=== PATIENT | female | born 1970 | race Caucasian/White ===

== ENCOUNTER 2021-12-26 12:09 | Observation (INO) ==
[2021-12-26] MEDS ORDERED: NovoLIN R (or HumuLIN R) SUBCUT PRN (15:37)
[2021-12-26 16:05] LABS: BASOPHILS % (AUTO) 0.5 % (0.2-1.0); EOSINOPHILS # (AUTO) 0.1 x10^3/uL (0.0-0.2); EOSINOPHILS % (AUTO) 1.8 % (0.9-2.9); HEMATOCRIT 31.6 % (36.0-47.0); LYMPHOCYTES # (AUTO) 1.8 X10^3/uL (1.3-2.9); MEAN CORPUSCULAR HEMOGLOBIN 29.9 pg (27.0-34.0); MEAN CORPUSCULAR HGB CONC 34.8 g/dL (33.0-35.0); MEAN PLATELET VOLUME 7.1 fL (7.4-11.0); MONOCYTES # (AUTO) 0.7 x10^3/uL (0.3-0.8); MONOCYTES % (AUTO) 8.6 % (0.0-13.0); NEUTROPHILS # (AUTO) 5.3 x10^3/uL (2.2-4.8); NEUTROPHILS % (AUTO) 66.1 % (42.0-75.0); RED BLOOD COUNT 3.67 X10^6/uL (3.5-5.4); RED CELL DISTRIBUTION WIDTH 14.7 % (11.6-16.5)
[2021-12-26 16:14] LABS: ALANINE AMINOTRANSFERASE 25 Units/L (12-78); ALBUMIN 3.4 g/dL (3.4-5.0); ALKALINE PHOSPHATASE 89 Units/L (46-116); AMYLASE 19 Units/L (25-115); ASPARTATE AMINO TRANSFERASE 23 Units/L (15-37); BLOOD UREA NITROGEN 12 mg/dL (7-18); CALCIUM 8.1 mg/dL (8.5-10.1); CHLORIDE 104 mmol/L (98-107); COR NA(FOR HYPERGLY) 139 mmol/L (136-145); CREATININE 0.95 mg/dL (0.55-1.02); LIPASE 69 Units/L (73-393); MAGNESIUM 1.4 mg/dL (1.7-2.9); SODIUM 137 mmol/L (136-145); TOTAL PROTEIN 6.3 g/dL (6.4-8.2); eGFR NON BLACK RACES > 60 (>60)
[2021-12-26] MEDS: D5 1/2 NS 1,000 ML 1,000 ML IV SCH (16:20)
[2021-12-26] MEDS: ZOFRAN INJ 4 MG VIAL IVP PRN ×2 (16:21→20:10)
[2021-12-26] MEDS ORDERED: POTASSIUM CHL 60 MEQ/NS 0.45% 500 ML IV PRN (16:32)
[2021-12-26] MEDS ORDERED: POTASSIUM CHLORIDE LIQ 20 MEQ UDC PO PRN (16:32)
[2021-12-26] MEDS ORDERED: KLOR-CON PO PRN (16:32)
[2021-12-26] MEDS ORDERED: K-RIDER 10 MEQ/NS 100 ML 10 MEQ/100 ML BAG IV PRN (16:32)
[2021-12-26] MEDS ORDERED: K-DUR TAB 20 MEQ PO PRN (16:32)
[2021-12-26] MEDS ORDERED: MICRO K EXTEN CAP 10 MEQ PO PRN (16:32)
[2021-12-26] MEDS ORDERED: POTASSIUM CHL 40 MEQ/NS 0.45% 500 ML IV PRN (16:32)
[2021-12-26 16:49] VITALS: BMI 36.0
[2021-12-26] MEDS: MAGNESIUM SULFATE 1 GRAM/100 mL PREMIX 1 G/100 ML BAG IV PRN ×3 (17:29→20:35)
[2021-12-26] MEDS ORDERED: TYLENOL 325 MG TAB PO PRN (19:23)
[2021-12-26] MEDS: MOBIC TAB 15 MG PO SCH (21:14)
[2021-12-26] MEDS: ZOCOR TAB 40 MG PO SCH (21:14)
[2021-12-26] MEDS: COREG TAB 25 MG PO SCH (21:14)
[2021-12-26] MEDS: NEURONTIN CAP 300 MG PO SCH (21:15)
[2021-12-26] MEDS: ZESTORETIC 20/25 MG PO SCH (21:15)
[2021-12-26] MEDS ORDERED: GLUCOPHAGE ONE (23:22)
[2021-12-26] MEDS: GLUCOPHAGE PO SCH (23:52)
--- NOTE | 2021-12-27 00:27 | RAD ---
PROCEDURE: Acute Abdomen Series .HISTORY: Abdomen pain with nausea and vomiting.TECHNIQUE: AP supine and upright abdomen with AP chest x-ray views .COMPARISON: 10/01/2020 chest x-ray.TECHNICAL QUALITY: Satisfactory .FINDINGS:Clear lungs and normal size heart.No pneumoperitoneum.Mild gas and feces in the colon without distention. No obstruction or ileus.No organomegaly.Some vascular calcifications right pelvis subcentimeter in size.No bony abnormality.IMPRESSION:1. Nonspecific bowel gas pattern.2. No active cardiopulmonary disease.Electronically signed by: Roberth Cedillo (Dec 27, 2021 00:25:34)
[2021-12-27] MEDS: MAGNESIUM SULFATE 1 GRAM/100 mL PREMIX 1 G/100 ML BAG IV PRN (02:08)
[2021-12-27] MEDS: D5 1/2 NS 1,000 ML 1,000 ML IV SCH ×4 (02:09→15:25)
[2021-12-27] MEDS: NEURONTIN CAP 300 MG PO SCH ×3 (05:20→21:58)
[2021-12-27 06:13] LABS: BASOPHILS % (AUTO) 0.6 % (0.2-1.0); EOSINOPHILS # (AUTO) 0.1 x10^3/uL (0.0-0.2); EOSINOPHILS % (AUTO) 2.5 % (0.9-2.9); HEMATOCRIT 29.4 % (36.0-47.0); HEMOGLOBIN 10.3 g/dL (12.0-16.0); LYMPHOCYTES # (AUTO) 1.5 X10^3/uL (1.3-2.9); LYMPHOCYTES % (AUTO) 28.6 % (21.0-51.0); MEAN CORPUSCULAR HGB CONC 34.9 g/dL (33.0-35.0); MEAN CORPUSCULAR VOLUME 85.9 fL (80.0-100.0); MEAN PLATELET VOLUME 7.2 fL (7.4-11.0); MONOCYTES # (AUTO) 0.5 x10^3/uL (0.3-0.8); MONOCYTES % (AUTO) 10.3 % (0.0-13.0); RED BLOOD COUNT 3.42 X10^6/uL (3.5-5.4); RED CELL DISTRIBUTION WIDTH 14.5 % (11.6-16.5); WHITE BLOOD COUNT 5.2 X10^3/uL (3.6-10.0)
[2021-12-27 06:26] LABS: ALANINE AMINOTRANSFERASE 27 Units/L (12-78); ALBUMIN 3.1 g/dL (3.4-5.0); ALKALINE PHOSPHATASE 83 Units/L (46-116); ASPARTATE AMINO TRANSFERASE 22 Units/L (15-37); BLOOD UREA NITROGEN 9 mg/dL (7-18); CALCIUM 7.8 mg/dL (8.5-10.1); CHLORIDE 105 mmol/L (98-107); COR CA(FOR HYPOALB) 8.5 mg/dL (8.5-10.1); COR NA(FOR HYPERGLY) 141 mmol/L (136-145); CREATININE 0.85 mg/dL (0.55-1.02); SODIUM 137 mmol/L (136-145); eGFR NON BLACK RACES > 60 (>60)
[2021-12-27] MEDS ORDERED: GLUCOPHAGE ONE ×2 (08:00→20:17)
[2021-12-27] MEDS: ZESTORETIC 20/25 MG PO SCH (08:23)
[2021-12-27] MEDS: COREG TAB 25 MG PO SCH ×2 (08:23→20:34)
[2021-12-27] MEDS: CYMBALTA PO SCH (08:23)
[2021-12-27] MEDS: GLUCOPHAGE PO SCH ×2 (08:23→20:34)
[2021-12-27] MEDS: MOBIC TAB 15 MG PO SCH (08:23)
[2021-12-27] MEDS: PEPCID 20 MG VIAL 20 MG in NS 50 ML IV 50 ML IV SCH ×2 (11:17→20:34)
[2021-12-27] MEDS: PROTONIX INJ 40 MG VIAL IVP SCH ×2 (11:18→20:35)
[2021-12-27] MEDS: ZOSYN VIAL 3.375 GRAMS 3.375 G in NS 100 ML IV 100 ML IV SCH ×3 (11:18→21:58)
--- NOTE | 2021-12-27 18:27 | DR.H&P ---
H&P - History & Physical for Day of: H&P Date: 12/26/21 - Chief Complaint Chief Complaint: ABDOMINAL PAIN, NAUSEA AND VOMITING, WEAKNESS - History of Present Illness History of Present Illness: IS A 51 YEAR OLD PATIENT OF [facility]. WE WERE CONTACTED FOR DIRECT ADMISSION OF PATIENT DUE TO GASTROENTERITIS, INTRACTABLE NAUSEA AND VOMITING, WEAKNESS, AND ABDOMINAL PAIN. PATIENT REPORTS HAVING NAUSEA AND VOMITING FOR THE PAST MONTH, BUT SYMPTOMS HAVE PROGRESSIVELY WORSENED OVER THE PAST 5 DAYS. HER PMH INCLUDES: CARDIAC ARRHYTHMIA, VALVULAR HEART DISEASE, HTN, A-FIB, HEART ABLATION X 2, GERD, COLITIS, UTIs, DDD, DM II, ANEMIA, CHOLECYSTECTOMY, UTERINE ABLATION, AND HAS HAD HER ESOPHAGUS STRETCHED. ABDOMINAL PAIN IS DESCRIBED INTERMITTENT PAIN AND CRAMPING. PAIN IS DIFFUSE. SHE RATED PAIN A 3/10. HE ONLY REPORTS HAVING TWO EPISODES OF WATERY DIARRHEA. HE DENIES FEVER, CHILLS, URINARY SYMPTOMS, FLANK PAIN. HE RATED PAIN A 5/10. SHE WAS SEEN AT [facility] ER ONE DAY PRIOR. AN ABDOMEN/PELVIS CT WAS OBTAINED AT THAT TIME. IT REVEALED POSSIBLE DEVELOPING COLITIS. SHE WAS ADMITTED TO THE HOSPITAL FOR FURTHER EVALUATION AND TREATMENT. ON ARRIVAL TO THE HOSPITAL, VITALS WERE: 98.5-72-20-98%-149/72. LABS WERE OBTAINED. WBC 8.0, RBC 3.67, HGB 11.0, HCT 31.6, PLT COUNT 266, SODIUM 137, POTASSIUM 3.7, CHLORIDE 104, BUN 12, CREATININE 0.95, GLUCOSE 198, CALCIUM 8.1, MAGNESIUM 1.4, AST 23, ALT 25, ALK PHOS 89, TOTAL PROTEIN 6.3, AMYLASE 19, LIPASE 69. COVID-19 NEGATIVE. AN ABDOMINAL SERIES WAS OBTAINED AND REVEALED: Clear lungs and normal size heart. No pneumoperitoneum. Mild gas and feces in the colon without distention. No obstruction or ileus. No organomegaly. Some vascular calcifications right pelvis subcentimeter in size. No bony abnormality. SHE WAS STARTED ON D5/12 NS AT 125 ML/HR, PEPCID 20MG IV Q12H, PROTONIX 40MG IV BID, ZOSYN 3.375G IV TID, HUMULIN R SLIDING SCALE, OTBS ACHS, ZOFRAN 4MG IV Q4H PRN, THE POTASSIUM AND MAGNESIUM PROTOCOLS, AND HER HOME MEDICATIONS OF COREG, CYMBALTA, NEURONTIN, ZESTORETIC, MOBIC, GLUCOPHAGE, AND ZOCOR WERE RESUMED. WE WILL CONSULT , GENERAL SURGEON, FOR FURTHER EVALUATION OF ABDOMINAL PAIN. WE WILL OBTAIN A STOOL FOR H.PYLOR TESTING. OTHERWISE, WE PLAN TO FOLLOW-UP WITH AM LABS AND CONTINUE TO MONITOR. TIME SPENT ON CLINICAL ASSESSMENT, REVIEWING LABS AND IMAGING, DECISION MAKING, AND DOCUMENTATION GREATER THAN 75 MINUTES. - Past Medical History Past Medical History: Anemia, Diabetes, GERD, Hypertension Additional Medical History: A-FIB, VALVULAR HEAR DISEASE, CARDIAC ABLATION X 2, COLITIS, CHRONIC UTIs, DDD, - Past Surgical History Surgical History: Cholecystectomy Additional Surgical History: UTERINE ABLATION, CARDIAC ABLATION, ESOPHAGUS STRETCHED - Family History Family Medical History: Coronary Artery Disease, Hypertension - Social History Does patient currently use any type of tobacco product: No Alcohol Use: Rarely Drug Use: Prescription Drugs - Medications Home Medications: levofloxacin [From Levaquin] Allergy (Verified 12/26/21 15:51) promethazine [From Phenergan] Allergy (Verified 12/26/21 15:36) CONTINUE taking the following medications carvedilol 25 mg tablet 1 tab PO BID 12/26/21 [History] diclofenac sodium 75 mg tablet,delayed release 75 mg PO BID 12/26/21 [History] duloxetine 30 mg capsule,delayed release 1 cap PO QDAY 12/26/21 [History] gabapentin 300 mg capsule 1 cap PO TID 12/26/21 [History] lisinopril 20 mg-hydrochlorothiazide 25 mg tablet 1 tab PO QDAY 12/26/21 [History] meloxicam 15 mg tablet 1 tab PO QDAY 12/26/21 [History] metformin 1,000 mg tablet 1 tab PO BID 12/26/21 [History] simvastatin 40 mg tablet 40 mg PO QHS 12/26/21 [History] - Review of Systems Constitutional: Weakness Eyes: No Symptoms Reported ENT: No Symptoms Reported Respiratory: No Symptoms Reported Cardiovascular: No Symptoms Reported Gastrointestinal: See HPI, Nausea, Vomiting, Abdominal Pain. denies: Melena, Hematochezia Genitourinary: No Symptoms Reported Musculoskeletal: No Symptoms Reported Skin: No Symptoms Reported Neurological: Weakness - Physical Exam Vital Signs: Temperature 98.3 F Pulse Rate [Right Radial] 65 Respiratory Rate 20 Blood Pressure [Left Arm] 124/57 O2 Sat by Pulse Oximetry 98 Oriented: Normal Eyes: Normal Ear: Normal Nose: Normal Throat: Normal Respiratory: Clear Throughout Cardiovascular: Normal : Normal Auscultation: Bowel Sounds: Normal Palpation: Normal Tenderness: Diffuse, Mild Skin: Decreased Turgur Musculoskeletal: Normal Psychiatric: Normal Mood Description: Calm Affect: Normal Speech Pattern: Clear - Assessment/Plan (1) Acute colitis Status: Acute Plan: ADMIT, D5/12 NS AT 125 ML/HR, PEPCID 20MG IV Q12H, PROTONIX 40MG IV BID, ZOSYN 3.375G IV TID, HUMULIN R SLIDING SCALE, OTBS ACHS, ZOFRAN 4MG IV Q4H PRN, THE POTASSIUM AND MAGNESIUM PROTOCOLS, AND HER HOME MEDICATIONS OF COREG, CYMBALTA, NEURONTIN, ZESTORETIC, MOBIC, GLUCOPHAGE, AND ZOCOR WERE RESUMED. CONSULT GENERAL SURGERY (2) Intractable nausea and vomiting Status: Acute (3) Abdominal pain Qualifiers: Abdominal location: generalized Qualified Code(s): R10.84 - Generalized abdominal pain Status: Acute - Allergies Allergies/Adverse Reactions: Allergies Allergy/AdvReac Type Severity Reaction Status Date / Time levofloxacin [From Levaquin] Allergy Verified 12/26/21 15:51 promethazine [From Phenergan] Allergy Verified 12/26/21 15:36
[2021-12-27] MEDS: ZOCOR TAB 40 MG PO SCH (20:35)
[2021-12-28] MEDS: D5 1/2 NS 1,000 ML 1,000 ML IV SCH ×2 (00:07→08:35)
[2021-12-28 03:53] LABS: BILIRUBIN,URINE NEGATIVE (NEGATIVE); BLOOD/HEMOGLOBIN,URINE 1+ (NEGATIVE); GLUCOSE, URINE NEGATIVE (NEGATIVE); KETONES,URINE NEGATIVE (NEGATIVE); LEUKOCYTE ESTERASE ,URINE 3+ (NEGATIVE); NITRITES,URINE NEGATIVE (NEGATIVE); PROTEIN,URINE 2+ (NEGATIVE); UROBILINOGEN,URINE NORMAL (NORMAL)
[2021-12-28 04:17] LABS: APPEARANCE,URINE SLIGHTLY HAZY (CLEAR); COLOR,URINE YELLOW (YELLOW)
[2021-12-28 04:18] LABS: BACTERIA,URINE 1+ /HPF (NEGATIVE); GRANULAR CASTS,URINE FEW /LPF (NEGATIVE); HYALINE CASTS, URINE FEW /LPF (NEGATIVE); RBC,URINE 0-2 /HPF (0-3); SQUAMOUS EPITHELIAL CELL,UR MANY /HPF (NEGATIVE); YEAST,URINE FEW /HPF (NEGATIVE)
[2021-12-28] MEDS: NEURONTIN CAP 300 MG PO SCH (05:17)
[2021-12-28] MEDS: ZOSYN VIAL 3.375 GRAMS 3.375 G in NS 100 ML IV 100 ML IV SCH (05:18)
[2021-12-28 06:31] LABS: BASOPHILS % (AUTO) 0.7 % (0.2-1.0); EOSINOPHILS # (AUTO) 0.2 x10^3/uL (0.0-0.2); EOSINOPHILS % (AUTO) 2.5 % (0.9-2.9); HEMATOCRIT 27.8 % (36.0-47.0); HEMOGLOBIN 9.6 g/dL (12.0-16.0); LYMPHOCYTES # (AUTO) 1.9 X10^3/uL (1.3-2.9); LYMPHOCYTES % (AUTO) 31.7 % (21.0-51.0); MEAN CORPUSCULAR HEMOGLOBIN 29.8 pg (27.0-34.0); MEAN CORPUSCULAR HGB CONC 34.5 g/dL (33.0-35.0); MEAN CORPUSCULAR VOLUME 86.5 fL (80.0-100.0); MEAN PLATELET VOLUME 7.1 fL (7.4-11.0); MONOCYTES # (AUTO) 0.5 x10^3/uL (0.3-0.8); MONOCYTES % (AUTO) 8.8 % (0.0-13.0); NEUTROPHILS # (AUTO) 3.4 x10^3/uL (2.2-4.8); NEUTROPHILS % (AUTO) 56.3 % (42.0-75.0); RED BLOOD COUNT 3.22 X10^6/uL (3.5-5.4); RED CELL DISTRIBUTION WIDTH 14.4 % (11.6-16.5)
[2021-12-28 06:51] LABS: ALBUMIN 2.9 g/dL (3.4-5.0); CALCIUM 7.5 mg/dL (8.5-10.1); CARBON DIOXIDE 24.6 mmol/L (21-32); COR CA(FOR HYPOALB) 8.4 mg/dL (8.5-10.1); CREATININE 1.36 mg/dL (0.55-1.02); TOTAL PROTEIN 5.6 g/dL (6.4-8.2)
[2021-12-28] MEDS ORDERED: GLUCOPHAGE ONE (08:05)
[2021-12-28] MEDS: PEPCID 20 MG VIAL 20 MG in NS 50 ML IV 50 ML IV SCH (08:31)
[2021-12-28] MEDS: COREG TAB 25 MG PO SCH (08:31)
[2021-12-28] MEDS: ZESTORETIC 20/25 MG PO SCH (08:31)
[2021-12-28] MEDS: GLUCOPHAGE PO SCH (08:32)
[2021-12-28] MEDS: CYMBALTA PO SCH (08:33)
[2021-12-28] MEDS: MOBIC TAB 15 MG PO SCH (08:33)
[2021-12-28] MEDS: PROTONIX INJ 40 MG VIAL IVP SCH (09:35)
[2021-12-28] MEDS ORDERED: NS 500 ML IV 500 ML IV ONE (09:39)
[2021-12-28] MEDS: ZOFRAN INJ 4 MG VIAL IVP PRN (11:57)
[2021-12-28 13:30] LABS: CARBON DIOXIDE 26.7 mmol/L (21-32); CREATININE 1.38 mg/dL (0.55-1.02)
[2021-12-28 13:38] VITALS: BP 128/70
== END 2021-12-28 16:05 | disposition home or self-care (01) ==
LOC: MED/SURG
PROVIDERS: ADMIT Internal Medicine; ATTEND Internal Medicine
DX: E11.65 Type 2 diabetes mellitus with hyperglycemia; I10 Essential (primary) hypertension; K21.9 Gastro-esophageal reflux disease without esophagitis; R10.84 Generalized abdominal pain; K52.89 Other specified noninfective gastroenteritis and colitis; R53.1 Weakness; R11.2 Nausea with vomiting, unspecified; Z87.440 Personal history of urinary (tract) infections; Z20.822 Contact with and (suspected) exposure to COVID-19